=== PATIENT | female | born 2000 | race Caucasian/White ===

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

== ENCOUNTER 2020-08-15 16:49 | Inpatient (IN) | payer SELFPAY ==
[~2020-08-15] VITALS: Ht 162.6 cm; Wt 61.4 kg
[~2020-08-15 16:49] MED LIST: NOVLOG SQ
[2020-08-15 17:20] LABS: BASO % 0.2 % (0.0-2.0); GRAN # 11.9 (1.4-6.5); GRAN % 88.4 % (42.2-75.2); HEMATOCRIT 40.8 % (37.0-47.0); HEMOGLOBIN 13.6 g/dl (12.5-16.0); LYMPH # 0.5 (1.2-3.4); LYMPH % 3.9 % (20.0-51.0); MEAN CELL VOLUME 90 fl (80.0-100.0); MEAN CORPUSCULAR HEMOGLOBIN 30 pg (27.0-31.0); MEAN CORPUSCULAR HGB CONC 33 g/dl (33.0-37.0); MEAN PLATELET VOLUME 10.4 fl (7.4-10.4); PLATELET COUNT 279 K/mm3 (130-400); RED BLOOD COUNT 4.55 M/mm3 (4.10-5.30); REDCELL DISTRIBUTION WIDTH-CV 11.7 % (11.5-14.5)
[2020-08-15 17:33] LABS: ALBUMIN 3.8 gm/dL (3.5-5.0); BILIRUBIN,TOTAL 0.7 mg/dL (0.0-1.0); C-REACTIVE PROTEIN 5.5 mg/dL (0.0-0.9); CALCIUM 8.8 mg/dL (8.4-10.2); CREATININE, serum 0.63 (0.52-1.25); POTASSIUM 3.3 mmol/L (3.4-5.0); TOTAL PROTEIN 7.6 gm/dL (6.4-8.2)
[2020-08-15 18:33] LABS: COLLECTION METHOD CLEAN CATCH
[2020-08-15 18:39] LABS: MUCOUS Present /lpf; PH 6 (5-8); URINE APPEARANCE Clear; URINE BACTERIA None Seen /hpf; URINE BILIRUBIN Negative (NEGATIVE); URINE BLOOD 1+ (NEGATIVE); URINE COLOR Amber; URINE GLUCOSE 3+ (NEGATIVE); URINE KETONE Trace (NEGATIVE); URINE LEUKOCYTE ESTERASE Trace (NEGATIVE); URINE NITRATE Positive (NEGATIVE); URINE PROTEIN(semi-quant) 1+ (NEGATIVE); URINE UROBILINOGEN >=4.0 mg/dL (NEGATIVE)
[2020-08-15] MEDS ORDERED: INSULIN R (N100 U/ML (19:53)
[2020-08-15] MEDS ORDERED: TRESIBA FL200 UNIT/1 SQ (19:53)
[2020-08-15 23:31] VITALS: BP 112/67; PULSE 80; TEMP 99.1
--- NOTE | 2020-08-16 00:52 | NUR ---
PT TRANSFERRED TO MEDICAL FLOOR AT APPROXIMATELY 0 VIA ER STAFF TO ROOM 352. PT A/0X4, VSS, 02 ROOM AIR, PT ABLE TO AMBULATE INDEPENDENTLY, REPORTS PAIN 3/10 TO LEFT FLANK, DENIES N/V/D. NURSE WILL CONDUCT ASSESMENT AND REVIEW POC. CALL LIGHT WITHIN REACH.
--- NOTE | 2020-08-16 04:21 | NUR ---
PT COMPLETED ONE IV BAG OF MAGNESIUM, N/S CURRENTLY INFUSING AT 100ML/HR VIA RIGHT INT FA. THIS NURSE REPLACED POTASSIUM 3X , EACH 20MEQ ORAL SOLUTION. PT REPORTS CHILLS, TEMPERATURE 99.7 FROM PREVIOUS 99.1, TYLENOL ADMINISTERED ORDERED. INSULIN ADMINISTERED ORDERED. URINE COLLECTED AND SUBMITTED TO LAB. NURSE WILL CONTINUE TO MONITOR. CALL LIGHT WITHIN REACH.
[2020-08-16 04:38] VITALS: BP 120/74; PULSE 102; TEMP 100.1
--- NOTE | 2020-08-16 05:39 | NUR ---
UPON FOLLOW UP TEMPERATURE DROPPED TO 98.3, PT CONTINUES TO COMPLAIN OF LEFT FLANK PAIN /, N/S INFUSING AT 100ML/HR, INSULIN ADMINISTERED ORDERED. PT EXPRESSES NO ADDITIONAL NEEDS AT THIS TIME. CALL LIGHT WITHIN REACH.
[2020-08-16 06:24] LABS: BASO % 0.4 % (0.0-2.0); EOS % 0.1 % (0-4.0); GRAN # 9.1 (1.4-6.5); GRAN % 82.7 % (42.2-75.2); HEMOGLOBIN 11.7 g/dl (12.5-16.0); LYMPH # 0.8 (1.2-3.4); LYMPH % 7.6 % (20.0-51.0); MEAN CELL VOLUME 91 fl (80.0-100.0); MEAN CORPUSCULAR HEMOGLOBIN 30 pg (27.0-31.0); MEAN CORPUSCULAR HGB CONC 33 g/dl (33.0-37.0); MEAN PLATELET VOLUME 10.5 fl (7.4-10.4); MONO % 8.7 % (1.7-9.3); PLATELET COUNT 269 K/mm3 (130-400); RED BLOOD COUNT 3.91 M/mm3 (4.10-5.30); REDCELL DISTRIBUTION WIDTH-CV 11.9 % (11.5-14.5)
[2020-08-16 06:34] LABS: HEMATOCRIT 35.6 % (37.0-47.0)
[2020-08-16 06:46] LABS: CALCIUM 7.8 mg/dL (8.4-10.2); CREATININE, serum 1.12 (0.52-1.25); POTASSIUM 3.9 mmol/L (3.4-5.0)
--- NOTE | 2020-08-16 07:31 | NUR ---
Patient awake in bed at this time. Patient C/O of 6/10 pain in her left flank. Describes is as intermittent sharpness that is aggravated by movement. NS running at 100 ml/hr as ordered. Patient denies any futher discomfort or needs at this time. Will continue to monitor. Call light in reach.
[2020-08-16 07:41] VITALS: BP 112/72; PULSE 94; TEMP 99.6
--- NOTE | 2020-08-16 08:05 | NUR ---
Schedule medications given. Assessment preformed. Patient given a [place] for a pain rated a 6/10. VSS. Temp reads 99.6. Will continue to monitor. Call light in reach. Fluids running as ordered.
--- NOTE | 2020-08-16 10:06 | NUR ---
Automatic Equipment Technician met with patient to discuss discharge planning. Patient's boyfriend, Owen is at bedside. Patient states she has an apartment in [place], [place] but has been staying with Owen here in [place]. Patient states she was seeing Dr. Karina Limon at [facility] for primary care, however she is not working at this time so has no insurance coverage. Patient has been getting any needed medications at [facility]. Patient does not use any DME and is independent with [facility]. Patient does not have any Advance Directives. Patient is not and her legal next of kin would be her parents, Nohemi Wheat (ph#[phone]) and Elan Muniz. Patient advised she is moving to [place] this Sunday with her boyfriend, Owen who recently got a job there. Discharge Plan: Home. Moving to [place] at the end of the week.
[2020-08-16 10:11] VITALS: TEMP 100.1
--- NOTE | 2020-08-16 10:20 | NUR ---
Temp reads 100.1. Left flank pain rated a 3/10. Aggravated by movement. PRN motrin given. Will continue to monitor. Call light in reach.
[2020-08-16 11:47] VITALS: BP 108/66; PULSE 92; TEMP 98.6
[2020-08-16 15:45] VITALS: BP 102/60; PULSE 88; TEMP 98.4
--- NOTE | 2020-08-16 18:34 | NUR ---
Patient has had an ok day. PRN hydrocodone given for pain in left lower abdomen and left flank rated a 7/10. Fluids running as ordered. Patient to have an ultrasound done. Will have to call and get a spot for the AM. Patient diet is now a general diet and is tolerated it well. Patient denies any further pain, discomfort, SOA, or further needs at this time. Will continue to monitor. Call light in reach.
[2020-08-16 19:47] VITALS: BP 114/70; PULSE 106; TEMP 100.4
--- NOTE | 2020-08-16 23:12 | NUR ---
Shift assessment completed. Patient pleasant, A/Ox4. Patient denies pain, SOB, or N/V at this time. Patient reports that she had left flank pain earlier and had pain meds and she is feeling better now. Temp 100.4 at this time. PRN Mortrin given. All scheduled meds given per MAY. NS currently running at 100ml/hr via right forearm IV. Call light within reach. Patient denies any needs at this time. Encouraged patient to call the nurse if pain comes back. Patient verbalized under standing. Will continue to monitor.
[2020-08-17 00:39] VITALS: BP 106/67; PULSE 84; TEMP 98.2
[2020-08-17 04:09] VITALS: BP 115/66; PULSE 94; TEMP 98.1
[2020-08-17 07:37] VITALS: BP 125/80; PULSE 106; TEMP 100.2
--- NOTE | 2020-08-17 08:15 | NUR ---
Pt assessment complete. Pt laying in bed upon entry, she is A/O x4. Her breathing is even and unlabored on RA. Pt denies SOB. No N/V. Pain improved with [place], patient reports that chills have improved. Spoke to her about options for body aches and fever. Will recheck temperature at later time as patient is relatively asymptomatic. IVF infusing without complications. No needs at this time. Call light within reach.
[2020-08-17 09:19] VITALS: TEMP 99.8
[2020-08-17 10:01] LABS: BASO % 0.3 % (0.0-2.0); EOS % 0.2 % (0-4.0); GRAN # 8.2 (1.4-6.5); GRAN % 81.2 % (42.2-75.2); HEMOGLOBIN 11.1 g/dl (12.5-16.0); LYMPH # 1.2 (1.2-3.4); LYMPH % 11.5 % (20.0-51.0); MEAN CELL VOLUME 94 fl (80.0-100.0); MEAN CORPUSCULAR HEMOGLOBIN 30 pg (27.0-31.0); MEAN CORPUSCULAR HGB CONC 32 g/dl (33.0-37.0); MEAN PLATELET VOLUME 11.5 fl (7.4-10.4); MONO # 0.6 (0.1-0.6); MONO % 6.1 % (1.7-9.3); PLATELET COUNT 285 K/mm3 (130-400); RED BLOOD COUNT 3.65 M/mm3 (4.10-5.30); REDCELL DISTRIBUTION WIDTH-CV 12.2 % (11.5-14.5)
[2020-08-17 10:04] LABS: HEMATOCRIT 34.3 % (37.0-47.0)
[2020-08-17 10:11] LABS: CALCIUM 7.5 mg/dL (8.4-10.2); CREATININE, serum 0.47 (0.52-1.25); POTASSIUM 3.4 mmol/L (3.4-5.0)
[2020-08-17 12:34] VITALS: BP 113/72; PULSE 92; TEMP 97.9
--- NOTE | 2020-08-17 13:58 | NUR ---
Initial visit; Patient thanked Rn Burn for looking in on her and offering encouragement and prayer. Rn Burn will keep Lisa in her prayers.
[2020-08-17] MEDS ORDERED: OMNICEF 300MG300 MG PO (14:44)
[2020-08-17] MEDS ORDERED: ZOFRAN ODT4 MG PO (14:45)
[2020-08-17] MEDS ORDERED: NORCO 325 MG-51 TAB PO (14:50)
--- NOTE | 2020-08-17 16:30 | NUR ---
Discharge instructions and paperwork reviewed with patient, all questions answered at this time. Financial assistance paperwork given to patient. IV to RFA dc'd catheter tip intact. Pt walked out of facility at this time.
== END 2020-08-17 16:35 | disposition home or self-care (01) | DRG 690 ==
LOC: COL.ER 16:49 → MEDICAL 19:41
PROVIDERS: Nurse Practitioner Primary Care; Physician Assistant; Student in an Organized Health Care Education/Training Program; ADMIT Internal Medicine
DX: N12 Tubulo-interstitial nephritis, not specified as acute or chronic (principal); E87.6 Hypokalemia; E11.9 Type 2 diabetes mellitus without complications; N28.1 Cyst of kidney, acquired; N15.1 Renal and perinephric abscess; T83.32XA Displacement of intrauterine contraceptive device, initial encounter
CPT/HCPCS: 99223-AI; 99232-AI; 99239; J0696; J1815; J1885; J2405; J3475; J7030; Q9967